=== PATIENT | female | born 2000 ===

== ENCOUNTER 2024-09-24 18:20 | Inpatient (IN) ==
--- NOTE | 2024-09-24 18:41 | Emergency Department Note ---
Impression & Plan Pyelonephritis, Sepsis, Hypomagnesemia ED Provider Note NAME: AUBREY PHILLIPS AGE: 24 SEX: F : 2000 ARRIVES VIA: Walk-In INFORMANT: Patient, ED PROVIDER(S): Kamaljit Shields DO CHIEF COMPLAINT: Fever HPI: The patient is a 24-year-old female who presented to the emergency department for an evaluation of fever. The patient states that she had similar episodes 2 weeks ago. She was diagnosed with urinary tract infection. She did take the antibiotic. Her symptoms resolved. She states that over the last 3 to 4 days she has had return of symptoms including lower abdominal pain back pain nausea vomiting and fever. The patient denies having any lower extremity swelling. She has had a slight cough but no difficulty breathing. She denies having any rashes. She has had no recent travel. ROS: See above HPI for pertinent positives & negatives. A total of 10 systems reviewed and were otherwise negative. PAST MEDICAL HISTORY: See Below PAST SURGICAL HISTORY: See Below FAMILY HISTORY: See Below SOCIAL HISTORY: See Below HOME MEDICATIONS: See Below ALLERGIES: See Below VITALS: See Below the patient is awake and alert. She is somewhat anxious appearing and tearful. EYES: The conjunctivae are clear. The pupils are round and reactive. EARS, NOSE, MOUTH AND THROAT: The nose is without any evidence of any deformity. Mucous membranes are moist. Tongue is midline. NECK: The neck is nontender and supple. RESPIRATORY: Normal respiratory effort is noted there is no evidence of wheezing rhonchi or rales CARDIOVASCULAR: Tachycardic and regular heart sounds were noted to auscultation. There is no definite murmur. GASTROINTESTINAL: The abdomen is soft and nondistended. There is lower abdominal tenderness to palpation but no specific guarding or rigidity. MUSCULOSKELETAL/EXTREMITIES: There is no evidence of gross deformity full range of motion is noted in the hips and shoulders. SKIN: There is no obvious evidence of any rash. There are no petechiae, pallor or cyanosis noted. NEUROLOGIC: Patient is awake alert and oriented x3 strength is symmetric patellar reflexes are 2+ bilaterally MEDICAL DECISION MAKING: The patient is a 24-year-old female who presented to the emergency department for an evaluation of fever and back pain. The patient has a history of a recently diagnosed urinary tract infection. The patient states that she finished her course of antibiotics and was feeling better until the last few days. She has been having worsening symptoms now including back pain she had an episode of vomiting previously. I discussed the patient's laboratory and radiographic studies with her. Given her findings she was started on empiric antibiotics as well as IV fluids. She was reevaluated multiple times. Her pulse rate improved but her blood pressure seemed to be very labile. Given her findings I discussed her condition with the on-call [facility]ist. They have agreed to evaluate the patient in the emergency department for further management and disposition. Triage Nursing notes reviewed. Prior medical records reviewed Vital Signs: reviewed and remarkable for hypotension and tachycardia. Differential diagnosis: Viral syndrome, otitis, pharyngitis, pneumonia, influenza, meningitis, urinary tract infection, sepsis, bacteremia, as well as other pathologies. ER treatment provided: See below Diagnostics interpreted by me: ECG: EKG was obtained in the emergency department. My interpretation is sinus tachycardia at 128 bpm. There is no ectopy. There is no acute ST segment abnormalities noted. Cardiac Monitoring: An order was placed for continuous cardiac monitoring. The monitor shows a rate of 107 bpm with sinus tachycardia. Laboratory studies: As stated above and show below. Imaging studies: See below. Radiographic imaging was reviewed by myself Consultation(s): I discussed this case with Dr. Maddox who is on-call for the [facility]. ED COURSE: Procedures: none Critical Care: I have personally spent greater than 35 minutes of critical care time in the direct management of this patient. This includes bedside care, interpretation of diagnostic studies, and testing, discussion with consultants, patient, and family members, and other required patient management activities. This 35 minutes is in excess of all separately billable procedures. Past Med/Surg History Problem List (Updated 09/24/24 @ 20:09 by Kamaljit Shields DO) Hypomagnesemia (Acute) Sepsis (Acute) Pyelonephritis (Acute) Acute UTI (Acute) Anemia (Acute) Rectal bleeding Hemorrhoids Rectal pain Social History Smoking Status: Never smoker Do You Dip or Chew Tobacco: No; Hx Substance Use: No Preferred Language: Angolan Feels Safe at Home: Yes Allergies Allergies Allergy/AdvReac Type Severity Reaction Status Date / Time No Known Allergies Allergy Verified 09/24/24 19:28 Home Meds Home Medications Medication Instructions Recorded Confirmed No Known Home Medications 09/24/24 09/24/24 Results & Data (ED) Vital Signs Vital Signs - 24 hr 09/24/24 18:30 09/24/24 18:39 09/24/24 18:43 Temperature 36.8 C Temperature Source Oral Pulse Rate 138 H 132 H Pulse Rate [Apical] 130 H Respiratory Rate 16 18 Respiratory Effort / Characteristics Non-Labored Spontaneous Respiratory Depth Normal Blood Pressure 102/39 L Blood Pressure [Right Arm] 93/62 L Blood Pressure Mean 60 Blood Pressure Mean [Right Arm] 72 Pulse Oximetry 97 99 Oxygen Delivery Method Room Air Room Air Sepsis Recent Fever Within 48 Hours No Sepsis New/Unexplained Change in Mental Status No Sepsis Action Taken by Nursing No Action Required 09/24/24 18:43 09/24/24 18:48 09/24/24 19:09 Temperature Temperature Source Pulse Rate 113 H Pulse Rate [Apical] 125 H Respiratory Rate 17 20 Respiratory Effort / Characteristics Respiratory Depth Blood Pressure 103/51 L Blood Pressure [Right Arm] 98/64 L Blood Pressure Mean 71 Blood Pressure Mean [Right Arm] 75 Pulse Oximetry 97 99 Oxygen Delivery Method Room Air Room Air Sepsis Recent Fever Within 48 Hours Sepsis New/Unexplained Change in Mental Status Sepsis Action Taken by Nursing 09/24/24 19:13 09/24/24 19:31 Temperature Temperature Source Pulse Rate 107 H Pulse Rate [Apical] 115 H Respiratory Rate 22 20 Respiratory Effort / Characteristics Non-Labored Spontaneous Respiratory Depth Normal Blood Pressure 87/51 L Blood Pressure [Right Arm] 103/51 L Blood Pressure Mean 59 Blood Pressure Mean [Right Arm] 68 Pulse Oximetry 99 100 Oxygen Delivery Method Room Air Sepsis Recent Fever Within 48 Hours Sepsis New/Unexplained Change in Mental Status Sepsis Action Taken by Snf Medications Current Medication List: was personally reviewed by me Laboratory Data Attestation: I reviewed the patient's lab results. 09/24/24 18:47 09/24/24 18:47 Lab Results 09/24/24 09/24/24 09/24/24 Range/Units 18:33 18:37 18:47 WBC 9.09 (4.8-10.8) K/ul RBC 5.36 (4.20-5.40) M/uL Hgb 11.4 L (12.0-16.0) g/dl Hct 35.7 L (37.0-47.0) % MCV 66.6 L (80.0-100.0) fL MCH 21.3 L (25.0-34.0) pg MCHC 31.9 L (32.0-36.0) g/dL RDW Std Deviation 38.1 (36.4-46.3) fL RDW Coeff of Christian 16.4 H (11.5-14.5) % Plt Count 274 (130-400) K/uL MPV 10.4 (9.4-12.4) fL Immature Gran % (Auto) 0.3 % Neut % (Auto) 89.4 % Lymph % (Auto) 8.3 % [place] % (Auto) 1.3 % Eos % (Auto) 0.1 % Baso % (Auto) 0.6 % Neut # (Auto) 8.13 H (1.40-6.50) K/uL Lymph # (Auto) 0.75 L (1.20-3.40) K/uL [place] # (Auto) 0.12 (0.11-0.59) K/uL Eos # (Auto) 0.01 (0.00-0.50) K/uL Baso # (Auto) 0.05 (0.00-0.20) K/uL Immature Gran # (Auto) 0.03 (0.01-0.20) K/uL Polychromasia 1+ Microcytosis Present Ovalocytes 1+ PT 11.2 (9.0-12.0) Seconds INR 1.0 (0.9-1.1) APTT 28 (21-31) Seconds PTT Ratio 1.0 VBG pH 7.37 (7.36-7.41) VBG pCO2 36 L (38-50) mmHg VBG pO2 34 mmHg VBG HCO3 21 mmol/L VBG O2 Saturation < 60.0 % VBG Base Excess -3.9 mEq/L Sodium 133 L (136-145) mmol/L Potassium 3.7 (3.5-5.1) mmol/L Chloride 103 (98-107) mmol/L Carbon Dioxide 21 (21-32) mmol/L Anion Gap 9 (3-11) BUN 7 (6-23) mg/dl Creatinine 0.82 (0.6-1.2) mg/dl Est Cr Clr Drug Dosing 98.9 ml/min eGFR 103.01 BUN/Creatinine Ratio 8.5 L (10-20) Glucose 113 H (70-99(Fasting)) mg/dl POC Glucose 90 (70-99) mg/dl Lactate 2.6 H* (0.4-2.0) mmol/L Calcium 8.9 (8.6-10.3) mg/dl Magnesium 1.5 L (1.7-2.4) mg/dl Total Bilirubin 0.9 (0.2-1.0) mg/dl Direct Bilirubin 0.2 (0-0.2) mg/dl AST 15 (13-39) U/L ALT 8 (7-52) U/L Alkaline Phosphatase 52 (34-104) U/L Troponin I High Sens < 2.3 (0-14) pg/ml Total Protein 7.8 (6.0-8.3) gm/dl Albumin 3.9 (3.4-5.0) gm/dl Procalcitonin 1.23 H (0-0.5) ng/ml HCG, Qual Negative (Negative) Urine Color Urine Appearance (Clear) Urine pH (4.5-7.5) Ur Specific [place] (1.000-1.030) Urine Protein (Negative) Urine Glucose (UA) (Negative) Urine Ketones (Negative) Urine Blood (Negative) Urine Nitrite (Negative) Urine Bilirubin (Negative) Urine Urobilinogen (Negative) Ur Leukocyte Esterase (Negative) Urine WBC (Auto) (0-5) /hpf Urine RBC (Auto) (0-2) /hpf U Hyaline Cast (Auto) (0-2) /lpf U Epithel Cells (Auto) (0-2) /hpf Urine Bacteria (Auto) (None Seen) Urine Comment 09/24/24 Range/Units 18:50 WBC (4.8-10.8) K/ul RBC (4.20-5.40) M/uL Hgb (12.0-16.0) g/dl Hct (37.0-47.0) % MCV (80.0-100.0) fL MCH (25.0-34.0) pg MCHC (32.0-36.0) g/dL RDW Std Deviation (36.4-46.3) fL RDW Coeff of Christian (11.5-14.5) % Plt Count (130-400) K/uL MPV (9.4-12.4) fL Immature Gran % (Auto) % Neut % (Auto) % Lymph % (Auto) % [place] % (Auto) % Eos % (Auto) % Baso % (Auto) % Neut # (Auto) (1.40-6.50) K/uL Lymph # (Auto) (1.20-3.40) K/uL [place] # (Auto) (0.11-0.59) K/uL Eos # (Auto) (0.00-0.50) K/uL Baso # (Auto) (0.00-0.20) K/uL Immature Gran # (Auto) (0.01-0.20) K/uL Polychromasia Microcytosis Ovalocytes PT (9.0-12.0) Seconds INR (0.9-1.1) APTT (21-31) Seconds PTT Ratio VBG pH (7.36-7.41) VBG pCO2 (38-50) mmHg VBG pO2 mmHg VBG HCO3 mmol/L VBG O2 Saturation % VBG Base Excess mEq/L Sodium (136-145) mmol/L Potassium (3.5-5.1) mmol/L Chloride (98-107) mmol/L Carbon Dioxide (21-32) mmol/L Anion Gap (3-11) BUN (6-23) mg/dl Creatinine (0.6-1.2) mg/dl Est Cr Clr Drug Dosing ml/min eGFR BUN/Creatinine Ratio (10-20) Glucose (70-99(Fasting)) mg/dl POC Glucose (70-99) mg/dl Lactate (0.4-2.0) mmol/L Calcium (8.6-10.3) mg/dl Magnesium (1.7-2.4) mg/dl Total Bilirubin (0.2-1.0) mg/dl Direct Bilirubin (0-0.2) mg/dl AST (13-39) U/L ALT (7-52) U/L Alkaline Phosphatase (34-104) U/L Troponin I High Sens (0-14) pg/ml Total Protein (6.0-8.3) gm/dl Albumin (3.4-5.0) gm/dl Procalcitonin (0-0.5) ng/ml HCG, Qual (Negative) Urine Color Yellow Urine Appearance Clear (Clear) Urine pH 8.0 H (4.5-7.5) Ur Specific [place] 1.006 (1.000-1.030) Urine Protein Negative (Negative) Urine Glucose (UA) Negative (Negative) Urine Ketones Negative (Negative) Urine Blood Negative (Negative) Urine Nitrite Negative (Negative) Urine Bilirubin Negative (Negative) Urine Urobilinogen Negative (Negative) Ur Leukocyte Esterase 2+ H (Negative) Urine WBC (Auto) 21-50 H (0-5) /hpf Urine RBC (Auto) 0-2 (0-2) /hpf U Hyaline Cast (Auto) 0-2 (0-2) /lpf U Epithel Cells (Auto) 0-2 (0-2) /hpf Urine Bacteria (Auto) 1+ H (None Seen) Urine Comment Administered Medications Sodium Chloride (Nss) 1,000 mls @ 999 mls/hr IV .Q1H1M MATT Stop: 09/24/24 20:45 Last Admin: 09/24/24 19:28 Dose: 999 mls/hr Documented By: Infusion: 09/24/24 19:28 Dose: Infused Documented By: Admin: 09/24/24 18:50 Dose: 999 mls/hr Documented By: JORGE Magnesium Sulfate/Dextrose (Magnesium Sulfate / D5w) 1 gm in 100 mls @ 100 mls/hr IV NOW STA Stop: 09/24/24 20:19 Last Admin: 09/24/24 19:27 Dose: 100 mls/hr Documented By: JORGE Discontinued Medications Ceftriaxone Sodium (Rocephin) 2,000 mg in 50 mls @ 100 mls/hr IV NOW STA Stop: 09/24/24 19:03 Last Infusion: 09/24/24 19:25 Dose: Infused Documented By: Admin: 09/24/24 18:53 Dose: 100 mls/hr Documented By: JORGE Ioversol (Optiray 320 125ml) 115 ml IV ONCE ONE Stop: 09/24/24 19:02 Last Admin: 09/24/24 19:01 Dose: 115 ml Documented By: ASHLEY Imaging Data Attestation: I personally reviewed and interpreted this imaging study as follows: My Impression: CT of the abdomen and pelvis was obtained in the emergency department. My interpretation is no free air, there is some dilated loops of bowel in the right upper quadrant, final report below. Radiologist's Impression: Abdomen/Pelvis CT 09/24/24 18:38 Clinical History: Fever and chills Technique: Axial computed tomography images were obtained of the abdomen and pelvis after the administration of intravenous contrast. No prior CT is available for comparison. Findings: The liver is overall of normal size, attenuation, and contour with no sign of cirrhosis or significant fatty infiltration. No liver mass lesion is seen. The portal vein is patent. The gallbladder appears unremarkable. No bile duct dilatation is noted. The spleen is of normal size. No focal splenic lesion is evident. The pancreas appears normal with no sign of acute or chronic pancreatitis and no mass lesion noted. The pancreatic duct is of normal caliber. The adrenal glands appear unremarkable. No definite renal or proximal ureteral calculi are seen on this contrast-enhanced study. There is no hydronephrosis or perinephric stranding. No renal mass lesion is identified. There is apparent mild multifocal diminished cortical enhancement of the left kidney. This may be due to pyelonephritis The aorta is of normal caliber. No abdominal adenopathy is seen. The stomach appears normal. There is no sign of small bowel obstruction. The colon appears unremarkable. The appendix appears normal also. No free intraperitoneal fluid or air is identified. No distal ureteral or bladder calculi are seen. The bladder is decompressed. The iliac arteries are of normal caliber. No pelvic adenopathy is noted. There is a suspected 1 cm Bartholin gland cyst. There is a 1.3 cm follicle in the left ovary The lungs bases appear clear. No fracture is identified. No focal osseous lesion is seen Impression: 1. Suspected left pyelonephritis 2. Small ovarian follicle and suspected Bartholin gland cyst Electronically signed by Ryan Woody 09-24-2024 7:19 PM Chest CTA 09/24/24 18:39 Clinical history: Fever and chills Technique: Axial computed tomography images were obtained of the chest after the administration of intravenous contrast according to the CT angiogram protocol Findings: There is no definite sign of pulmonary embolism. The lungs appear clear without infiltrate or mass. There is no pleural effusion or pneumothorax. There is no sign of pulmonary fibrosis or other diffuse interstitial process. No endobronchial lesion is seen There is no mediastinal, hilar, or axillary adenopathy. The thoracic aorta appears unremarkable with no sign of aneurysm or dissection. There is no pericardial effusion No fracture is seen. No focal osseous lesion is evident Impression: 1. No definite sign of pulmonary embolism 2. Normal-appearing lungs Electronically signed by Ryan Woody 09-24-2024 7:21 PM Discharge Plan Visit Data Chief Complaint: Fever Stated Complaint: FEVER ED Provider: Kamaljit Shields Discharge Problem: Pyelonephritis, Sepsis, Hypomagnesemia Patient Disposition: Being Evaluated by Hospitalist Condition: Fair Forms Stand Alone Forms: [facility] Prescriptions Prescriptions: No Action No Known Home Medications Referrals Referrals: PCP,NO [Physician] -
[2024-09-24] MEDS: SODIUM CHLORIDE 0.9% 1,000 ML IV SCH ×2 (18:50→22:26)
[2024-09-24] MEDS: cefTRIAXone SODIUM 2,000 MG/50 ML BAG IV STA (18:53)
[2024-09-24] MEDS: OPTIRAY 320 125ml IV ONE (19:01)
[2024-09-24 19:02] LABS: Base Excess VBG -3.9 mEq/L; HCO3 VBG 21 mmol/L; Oxygen Saturation VBG < 60.0 %; PCO2 VBG 36 mmHg (38-50); PO2 VBG 34 mmHg; pH VBG 7.37 (7.36-7.41)
[2024-09-24 19:02] LABS: Hematocrit (blood only) 35.7 % (37.0-47.0); Hemoglobin 11.4 g/dl (12.0-16.0); Immature Granulocytes # (auto) 0.03 K/uL (0.01-0.20); Immature Granulocytes % (auto) 0.3 %; Mean Corpuscular Hemoglobin 21.3 pg (25.0-34.0); Mean Corpuscular Volume 66.6 fL (80.0-100.0); RDW Standard Deviation 38.1 fL (36.4-46.3); Red Blood Count 5.36 M/uL (4.20-5.40); White Blood Count 9.09 K/ul (4.8-10.8)
[2024-09-24 19:08] LABS: Platelet Count 274 K/uL (130-400)
[2024-09-24 19:15] LABS: Appearance Urine Clear (Clear); Bacteria Urine Automated 1+ (None Seen); Cast Urine Automated 0-2 /lpf (0-2); Epithelial Cell Urine Auto 0-2 /hpf (0-2); Glucose Urine UA Negative (Negative); RBC Urine Automated 0-2 /hpf (0-2); WBC Urine Automated 21-50 /hpf (0-5)
[2024-09-24 19:19] LABS: Alanine Aminotransferase 8 U/L (7-52); Alkaline Phosphatase 52 U/L (34-104); Anion Gap 9 (3-11); Bilirubin,Total 0.9 mg/dl (0.2-1.0); Blood Urea Nitrogen 7 mg/dl (6-23); Calcium 8.9 mg/dl (8.6-10.3); Carbon Dioxide 21 mmol/L (21-32); Chloride 103 mmol/L (98-107); Creatinine Clr Calc Pharmacy 98.9 ml/min; Glucose 113 mg/dl (70-99(Fasting)); Magnesium 1.5 mg/dl (1.7-2.4); Potassium 3.7 mmol/L (3.5-5.1); Sodium 133 mmol/L (136-145); Total Protein 7.8 gm/dl (6.0-8.3)
[2024-09-24 19:22] LABS: Microcytosis Present; Ovalocytes 1+; Polychromasia 1+
--- NOTE | 2024-09-24 19:23 | CT Scan Report ---
Clinical History: Fever and chills Technique: Axial computed tomography images were obtained of the abdomen and pelvis after the administration of intravenous contrast. No prior CT is available for comparison. Findings: The liver is overall of normal size, attenuation, and contour with no sign of cirrhosis or significant fatty infiltration. No liver mass lesion is seen. The portal vein is patent. The gallbladder appears unremarkable. No bile duct dilatation is noted. The spleen is of normal size. No focal splenic lesion is evident. The pancreas appears normal with no sign of acute or chronic pancreatitis and no mass lesion noted. The pancreatic duct is of normal caliber. The adrenal glands appear unremarkable. No definite renal or proximal ureteral calculi are seen on this contrast-enhanced study. There is no hydronephrosis or perinephric stranding. No renal mass lesion is identified. There is apparent mild multifocal diminished cortical enhancement of the left kidney. This may be due to pyelonephritis The aorta is of normal caliber. No abdominal adenopathy is seen. The stomach appears normal. There is no sign of small bowel obstruction. The colon appears unremarkable. The appendix appears normal also. No free intraperitoneal fluid or air is identified. No distal ureteral or bladder calculi are seen. The bladder is decompressed. The iliac arteries are of normal caliber. No pelvic adenopathy is noted. There is a suspected 1 cm Bartholin gland cyst. There is a 1.3 cm follicle in the left ovary The lungs bases appear clear. No fracture is identified. No focal osseous lesion is seen Impression: 1. Suspected left pyelonephritis 2. Small ovarian follicle and suspected Bartholin gland cyst Electronically signed by Ryan Woody 09-24-2024 7:19 PM
--- NOTE | 2024-09-24 19:23 | CT Scan Report ---
Clinical history: Fever and chills Technique: Axial computed tomography images were obtained of the chest after the administration of intravenous contrast according to the CT angiogram protocol Findings: There is no definite sign of pulmonary embolism. The lungs appear clear without infiltrate or mass. There is no pleural effusion or pneumothorax. There is no sign of pulmonary fibrosis or other diffuse interstitial process. No endobronchial lesion is seen There is no mediastinal, hilar, or axillary adenopathy. The thoracic aorta appears unremarkable with no sign of aneurysm or dissection. There is no pericardial effusion No fracture is seen. No focal osseous lesion is evident Impression: 1. No definite sign of pulmonary embolism 2. Normal-appearing lungs Electronically signed by Ryan Woody 09-24-2024 7:21 PM
[2024-09-24] MEDS: MAGNESIUM SULFATE / D5W 1 GM/100 ML BAG IV STA (19:27)
[2024-09-24 19:30] LABS: INR 1.0 (0.9-1.1); Partial Thromboplastin Time 28 Seconds (21-31); Prothrombin Time 11.2 Seconds (9.0-12.0)
[2024-09-24 19:31] LABS: Pregnancy Test, Serum Negative (Negative)
[2024-09-24] MEDS: SODIUM CHLORIDE 0.9% 1,000 ML IV ONE (20:08)
--- NOTE | 2024-09-24 20:15 | History & Physical Report ---
Date of Service September 24, 2024 Assessment & Plan (1) Sepsis: (2) Pyelonephritis: (3) Hypomagnesemia: Plan 24yo female presenting with sepsis secondary to acute pyelonephritis. Patient febrile, tachycardic with hypotension in the ER, some improvement with IVF although still with HR of 117 and BP of 94/56 following 3L NSS. Patient with elevated procalcitonin of 1.23. Lactate of 2.6 on presentation which normalized to 1.7 following IVF. #Sepsis/Pyelonephritis - Sepsis present on admission. Likely secondary to bilateral pyelonephritis - patient with bilateral CVA tenderness, R>L on exam. CT suggestive of left pyelonephritis. She did complete 7 days of Cefdinir which is appropriate coverage for her culture. Uncertain why her infection is persistent? -Admit to PCU -Follow culture sent from ER - blood and urine -Continue IVF - LR at 125mL/hr x 2L -Calcium x 1gm for BP support -Ceftriaxone 2gm IV daily -Tylenol PRN -Toradol PRN -Zofran PRN nausea #Hypomagnesemia - Mg=1.5 -Repleted #Microcytic anemia - MCV quite low at 66.6. ?Thalassemia -Check iron panel History of Present Illness Chief Complaint: UTI Primary Care [facility] Neeraj Saleh is a 24yo female with no significant past medical history p resenting with fever, chills and bilateral flank pain. Patient was recently seen in the ER on 09/10/24 with complaint of nausea, vomiting and fever. She was found to have an acute UTI and was discharged home on Cefdinir 300mg po BID x 7 day course. Urine culture POSITIVE for aquino-sensitive E. coli. Patient reports that her symptoms improved and she completed her antibiotic course as directed. Over the last 2-3 days she has been again experiencing increased frequency of urination as well as lower abdominal pain and pain in the bilateral flanks. Today she had some nausea and an episode of vomiting. She took a nap from around 15:00 - 16:30; when she woke she had an elevated temperature to 100 which then increased to 102. No additional complaints at this time. In the ER patient had elevated heart rate - sinus tachycardia in the 110-120's. Blood pressure has been borderline low, 87/51 at the time of my encounter ER Course: NSS x 3L Ceftriaxone 2gm Magnesium x 1gm Allergies Allergy/AdvReac Type Severity Reaction Status Date / Time No Known Allergies Allergy Verified 09/24/24 19:28 Home Medications Medication Instructions Recorded Confirmed Type No Known Home Medications 09/24/24 09/24/24 History Past Med/Surg History Problem List Hypomagnesemia (Acute) Sepsis (Acute) Pyelonephritis (Acute) Acute UTI (Acute) Anemia (Acute) Rectal bleeding Hemorrhoids Rectal pain Surgical History (Updated 09/24/24 @ 23:14 by Kellie Maddox DO) History of rectal surgery 07/26/2024 dilation performed in [facility] Family History (Updated 09/24/24 @ 23:14 by Kellie Maddox DO) Other Thyroid disease Social History Smoking Status: Never smoker Do You Dip or Chew Tobacco: No; Hx Alcohol Use: Yes Alcohol type: beer, wine and hard liquor Hx Substance Use: No Preferred Language: Occitan Communication Ability: Effective [employer] Required: No Beliefs That Will Affect Care: None Current Living Situation: Other Current Living Situation Comment: room mates Other Information That Helps Us Care for You: No Feels Safe at Home: Yes Safety Concerns: Feels Safe At This Time Assistive Devices: Glasses Review of Systems Review of Systems: All systems reviewed & are unremarkable except as noted in HPI & below Physical Exam Physical Exam: General: patient resting comfortably, NAD, non-toxic in appearance, AA&O x 4 Skin: warm, dry, intact, no rashes or lesions HEENT: NC/AT, PERRL, EOMI, anicteric sclera, conjunctiva without injection, external ear normal to inspection and nontender, nares patent, moist mucus membranes, dentition intact, no oropharyngeal lesions, neck supple, trachea midline, no LAD, no thyromegaly, no JVD Heart: +S1/S2, regular, no m/r/g Lungs: equal air entry bilaterally, no rales/rhonchi/wheezes Abd: +BS, soft, suprapubic tenderness, +CVA tenderness bilaterally Ext: warm, 2+ pulses in UE/LE bilaterally, no clubbing/cyanosis or edema Neuro: nonfocal, patient AA&O x 4, speech intact, no facial droop, moving all extremities on command with equal strength 5/5 Results & Data Results & Data Vital Signs (Past 12 Hours) Vital Signs Temp Pulse Pulse Resp BP BP Pulse Ox 09/24/24 20:10 108 H 25 H 90/49 L 99 09/24/24 19:31 107 H 20 87/51 L 100 09/24/24 19:13 115 H 22 103/51 L 99 09/24/24 19:09 113 H 20 103/51 L 99 09/24/24 18:48 125 H 17 98/64 L 97 09/24/24 18:43 09/24/24 18:43 130 H 18 93/62 L 99 09/24/24 18:39 132 H 09/24/24 18:30 36.8 C 138 H 16 102/39 L 97 O2 Del Method 09/24/24 20:10 09/24/24 19:31 09/24/24 19:13 Room Air 09/24/24 19:09 09/24/24 18:48 Room Air 09/24/24 18:43 Room Air 09/24/24 18:43 Room Air 09/24/24 18:39 09/24/24 18:30 Room Air Laboratory Results Laboratory Results WBC 9.09 K/ul (4.8-10.8) 09/24/24 18:47 RBC 5.36 M/uL (4.20-5.40) 09/24/24 18:47 Hgb 11.4 g/dl (12.0-16.0) L 09/24/24 18:47 Hct 35.7 % (37.0-47.0) L 09/24/24 18:47 MCV 66.6 fL (80.0-100.0) L 09/24/24 18:47 MCH 21.3 pg (25.0-34.0) L 09/24/24 18:47 MCHC 31.9 g/dL (32.0-36.0) L 09/24/24 18:47 RDW Std Deviation 38.1 fL (36.4-46.3) 09/24/24 18:47 RDW Coeff of Christian 16.4 % (11.5-14.5) H 09/24/24 18:47 Plt Count 274 K/uL (130-400) 09/24/24 18:47 MPV 10.4 fL (9.4-12.4) 09/24/24 18:47 Immature Gran % (Auto) 0.3 % 09/24/24 18:47 Neut % (Auto) 89.4 % 09/24/24 18:47 Lymph % (Auto) 8.3 % 09/24/24 18:47 [place] % (Auto) 1.3 % 09/24/24 18:47 Eos % (Auto) 0.1 % 09/24/24 18:47 Baso % (Auto) 0.6 % 09/24/24 18:47 Neut # (Auto) 8.13 K/uL (1.40-6.50) H 09/24/24 18:47 Lymph # (Auto) 0.75 K/uL (1.20-3.40) L 09/24/24 18:47 [place] # (Auto) 0.12 K/uL (0.11-0.59) 09/24/24 18:47 Eos # (Auto) 0.01 K/uL (0.00-0.50) 09/24/24 18:47 Baso # (Auto) 0.05 K/uL (0.00-0.20) 09/24/24 18:47 Immature Gran # (Auto) 0.03 K/uL (0.01-0.20) 09/24/24 18:47 Polychromasia 1+ 09/24/24 18:47 Microcytosis Present 09/24/24 18:47 Ovalocytes 1+ 09/24/24 18:47 PT 11.2 Seconds (9.0-12.0) 09/24/24 18:47 INR 1.0 (0.9-1.1) 09/24/24 18:47 APTT 28 Seconds (21-31) 09/24/24 18:47 PTT Ratio 1.0 09/24/24 18:47 VBG pH 7.37 (7.36-7.41) 09/24/24 18:33 VBG pCO2 36 mmHg (38-50) L 09/24/24 18:33 VBG pO2 34 mmHg 09/24/24 18:33 VBG HCO3 21 mmol/L 09/24/24 18:33 VBG O2 Saturation < 60.0 % 09/24/24 18:33 VBG Base Excess -3.9 mEq/L 09/24/24 18:33 Sodium 133 mmol/L (136-145) L 09/24/24 18:47 Potassium 3.7 mmol/L (3.5-5.1) 09/24/24 18:47 Chloride 103 mmol/L (98-107) 09/24/24 18:47 Carbon Dioxide 21 mmol/L (21-32) 09/24/24 18:47 Anion Gap 9 (3-11) 09/24/24 18:47 BUN 7 mg/dl (6-23) 09/24/24 18:47 Creatinine 0.82 mg/dl (0.6-1.2) 09/24/24 18:47 Est Cr Clr Drug Dosing 98.9 ml/min 09/24/24 18:47 eGFR 103.01 09/24/24 18:47 BUN/Creatinine Ratio 8.5 (10-20) L 09/24/24 18:47 Glucose 113 mg/dl (70-99(Fasting)) H 09/24/24 18:47 POC Glucose 90 mg/dl (70-99) 09/24/24 18:37 Lactate 1.7 mmol/L (0.4-2.0) 09/24/24 Unknown Calcium 8.9 mg/dl (8.6-10.3) 09/24/24 18:47 Magnesium 1.5 mg/dl (1.7-2.4) L 09/24/24 18:47 Total Bilirubin 0.9 mg/dl (0.2-1.0) 09/24/24 18:47 Direct Bilirubin 0.2 mg/dl (0-0.2) 09/24/24 18:47 AST 15 U/L (13-39) 09/24/24 18:47 ALT 8 U/L (7-52) 09/24/24 18:47 Alkaline Phosphatase 52 U/L (34-104) 09/24/24 18:47 Troponin I High Sens < 2.3 pg/ml (0-14) 09/24/24 18:47 Total Protein 7.8 gm/dl (6.0-8.3) 09/24/24 18:47 Albumin 3.9 gm/dl (3.4-5.0) 09/24/24 18:47 Procalcitonin 1.23 ng/ml (0-0.5) H 09/24/24 18:47 HCG, Qual Negative (Negative) 09/24/24 18:47 Urine Color Yellow 09/24/24 18:50 Urine Appearance Clear (Clear) 09/24/24 18:50 Urine pH 8.0 (4.5-7.5) H 09/24/24 18:50 Ur Specific [place] 1.006 (1.000-1.030) 09/24/24 18:50 Urine Protein Negative (Negative) 09/24/24 18:50 Urine Glucose (UA) Negative (Negative) 09/24/24 18:50 Urine Ketones Negative (Negative) 09/24/24 18:50 Urine Blood Negative (Negative) 09/24/24 18:50 Urine Nitrite Negative (Negative) 09/24/24 18:50 Urine Bilirubin Negative (Negative) 09/24/24 18:50 Urine Urobilinogen Negative (Negative) 09/24/24 18:50 Ur Leukocyte Esterase 2+ (Negative) H 09/24/24 18:50 Urine WBC (Auto) 21-50 /hpf (0-5) H 09/24/24 18:50 Urine RBC (Auto) 0-2 /hpf (0-2) 09/24/24 18:50 U Hyaline Cast (Auto) 0-2 /lpf (0-2) 09/24/24 18:50 U Epithel Cells (Auto) 0-2 /hpf (0-2) 09/24/24 18:50 Urine Bacteria (Auto) 1+ (None Seen) H 09/24/24 18:50 Urine Comment 09/24/24 18:50 Impressions Abdomen/Pelvis CT 09/24/24 18:38 Clinical History: Fever and chills Technique: Axial computed tomography images were obtained of the abdomen and pelvis after the administration of intravenous contrast. No prior CT is available for comparison. Findings: The liver is overall of normal size, attenuation, and contour with no sign of cirrhosis or significant fatty infiltration. No liver mass lesion is seen. The portal vein is patent. The gallbladder appears unremarkable. No bile duct dilatation is noted. The spleen is of normal size. No focal splenic lesion is evident. The pancreas appears normal with no sign of acute or chronic pancreatitis and no mass lesion noted. The pancreatic duct is of normal caliber. The adrenal glands appear unremarkable. No definite renal or proximal ureteral calculi are seen on this contrast-enhanced study. There is no hydronephrosis or perinephric stranding. No renal mass lesion is identified. There is apparent mild multifocal diminished cortical enhancement of the left kidney. This may be due to pyelonephritis The aorta is of normal caliber. No abdominal adenopathy is seen. The stomach appears normal. There is no sign of small bowel obstruction. The colon appears unremarkable. The appendix appears normal also. No free intraperitoneal fluid or air is identified. No distal ureteral or bladder calculi are seen. The bladder is decompressed. The iliac arteries are of normal caliber. No pelvic adenopathy is noted. There is a suspected 1 cm Bartholin gland cyst. There is a 1.3 cm follicle in the left ovary The lungs bases appear clear. No fracture is identified. No focal osseous lesion is seen Impression: 1. Suspected left pyelonephritis 2. Small ovarian follicle and suspected Bartholin gland cyst Electronically signed by Ryan Woody 09-24-2024 7:19 PM Chest CTA 09/24/24 18:39 Clinical history: Fever and chills Technique: Axial computed tomography images were obtained of the chest after the administration of intravenous contrast according to the CT angiogram protocol Findings: There is no definite sign of pulmonary embolism. The lungs appear clear without infiltrate or mass. There is no pleural effusion or pneumothorax. There is no sign of pulmonary fibrosis or other diffuse interstitial process. No endobronchial lesion is seen There is no mediastinal, hilar, or axillary adenopathy. The thoracic aorta appears unremarkable with no sign of aneurysm or dissection. There is no pericardial effusion No fracture is seen. No focal osseous lesion is evident Impression: 1. No definite sign of pulmonary embolism 2. Normal-appearing lungs Electronically signed by Ryan Woody 09-24-2024 7:21 PM Code Status & VTE Plan VTE Prophylaxis Plan VTE Prophylaxis will be ordered: Yes PG Care Time/CCT Total # of Minutes Spent Total Time Spent with Patient: Total time spent is greater than 50% in coordination of care (as documented) at patient's floor/unit and/or counseling patient: Coding Level of Care Code 61283 INT INP/OBS CARE 3/75MIN Diagnoses Sepsis A41.9 Pyelonephritis N12 Hypomagnesemia E83.42
[2024-09-24] MEDS ORDERED: POLYETHYLENE (MIRALAX) 17 GM PACK PO PRN (22:02)
[2024-09-24] MEDS ORDERED: DOCUSATE SODIUM 100 MG CAP PO PRN (22:02)
[2024-09-24] MEDS ORDERED: ONDANSETRON INJ 2 MG/ML 2 ML VIAL IV PRN (22:02)
[2024-09-24] MEDS: ENOXAPARIN INJ 40 MG/0.4 ML SYR SQ SCH (22:25)
[2024-09-24] MEDS: CALCIUM GLUCONATE 1,000 MG/60 ML BAG IV STA (22:27)
[2024-09-24] MEDS: KETOROLAC TROMETHAMINE 15 MG/ML VIAL IV PRN (22:42)
[2024-09-25 06:59] LABS: Hematocrit (blood only) 30.6 % (37.0-47.0); Hemoglobin 9.6 g/dl (12.0-16.0); Mean Corpuscular Hemoglobin 21.1 pg (25.0-34.0); Mean Corpuscular Volume 67.3 fL (80.0-100.0); Platelet Count 250 K/uL (130-400); RDW Standard Deviation 39.8 fL (36.4-46.3); Red Blood Count 4.55 M/uL (4.20-5.40); White Blood Count 15.84 K/ul (4.8-10.8)
[2024-09-25 07:07] LABS: Anion Gap 5.0 (3-11); Blood Urea Nitrogen 6.0 mg/dl (6-23); Calcium 7.6 mg/dl (8.6-10.3); Carbon Dioxide 20.0 mmol/L (21-32); Chloride 115.0 mmol/L (98-107); Creatinine Clr Calc Pharmacy 121.8 ml/min; Glucose 115.0 mg/dl (70-99(Fasting)); Iron 11.0 mcg/dl (35-150); Potassium 3.6 mmol/L (3.5-5.1); Sodium 140.0 mmol/L (136-145); Total Iron Binding Cap Calc 260.0 mcg/dl (250-450); Transferrin 186.0 mg/dl (200-360); Transferrin (FE) Percent Satur 4.0 % (15-50)
--- NOTE | 2024-09-25 11:40 | Electrocardiogram Report ---
Test Reason : Blood Pressure : */* mmHG Vent. Rate : 128 BPM Atrial Rate : 128 BPM P-R Int : 130 ms QRS Dur : 76 ms QT Int : 406 ms P-R-T Axes : 31 59 51 degrees QTcB Int : 592 ms Sinus tachycardia Nonspecific ST and T wave abnormality Abnormal ECG No previous ECGs available Confirmed by Jose Elias Sarabia ([id number]) on 09/25/2024 11:39:49 AM Referred By: REFERRED SELF Confirmed By: Jose Elias Sarabia
--- NOTE | 2024-09-25 11:41 | Hospitalist Progress Note ---
Date of Service September 25, 2024 Assessment & Plan (1) Sepsis: (2) Pyelonephritis: (3) Hypomagnesemia: Plan 24yo female presenting with sepsis secondary to acute pyelonephritis. Patient febrile, tachycardic with hypotension in the ER, some improvement with IVF although still with HR of 117 and BP of 94/56 following 3L NSS. Patient with elevated procalcitonin of 1.23. Lactate of 2.6 on presentation which normalized to 1.7 following IVF. #Sepsis/Pyelonephritis Sepsis present on admission. Likely secondary to bilateral pyelonephritis. She did complete 7 days of Cefdinir which is appropriate coverage for her culture. Uncertain why her infection is persistent? CT suggestive of left pyelonephritis. CBC w/ bump of WBC to 15.84, BMP stable UC w/ E. Coli as prelim - await sensitivities Continue IV Rocephin Tylenol prn for pain/fever, Zofran prn for nausea. #Hypomagnesemia Mg=1.5 on admission Repleted #Microcytic anemia hgb 9.6, MCV 67.3 Iron panel w/ low iron of 11, transferrin % sat of 4 Would benefit from IV iron infusion + PO supplementation & heme referral on outpatient Set IV iron infusion for 09/26 in AM. DVT prophylaxis: Lovenox Code: full Admission and Anticipated Discharge Date Admission Date: September 24, 2024 Subjective The patient was seen and examined this morning. She reports she was feeling better this AM. Denied any further flank pain. She was still experiencing dysuria. Physical Exam Constitutional: no acute distress Respiratory: normal respiratory effort, lungs clear to auscultation Cardiovascular: tachycardic, no LE edema Neurologic: PERRL, EOMI, accommodation nl, no face palsy, no dysarthria Psychiatric: A+Ox3, euthymic affect Results & Data Results & Data Vital Signs (Past 12 Hours) Vital Signs Temp Pulse Pulse Resp BP Pulse Ox O2 Del Method 09/25/24 11:39 36.4 C L 94 H 18 96/65 L 98 Room Air 09/25/24 08:28 99 H 09/25/24 07:54 36.3 C L 71 18 97/62 L 99 Room Air 09/25/24 02:45 36.9 C 91 H 18 93/56 L 98 Room Air PG Care Time/CCT Total # of Minutes Spent Total Time Spent with Patient: Total time spent is greater than 50% in coordination of care (as documented) at patient's floor/unit and/or counseling patient: Coding Level of Care Code 95331 SUB INP/OBS CARE 235MIN Diagnoses Sepsis A41.9 Pyelonephritis N12 Hypomagnesemia E83.42
[2024-09-25] MEDS: cefTRIAXone SODIUM 1,000 MG/50 ML BAG IV SCH (17:06)
[2024-09-25] MEDS: ACETAMINOPHEN 325 MG TAB PO PRN (18:01)
[2024-09-26 06:10] LABS: Hematocrit (blood only) 29.3 % (37.0-47.0); Hemoglobin 9.2 g/dl (12.0-16.0); Immature Granulocytes # (auto) 0.04 K/uL (0.01-0.20); Immature Granulocytes % (auto) 0.4 %; Mean Corpuscular Hemoglobin 20.7 pg (25.0-34.0); Mean Corpuscular Volume 66.0 fL (80.0-100.0); RDW Standard Deviation 39.3 fL (36.4-46.3); Red Blood Count 4.44 M/uL (4.20-5.40); White Blood Count 10.55 K/ul (4.8-10.8)
[2024-09-26 06:28] LABS: Anion Gap 5.0 (3-11); Blood Urea Nitrogen 7.0 mg/dl (6-23); Calcium 7.8 mg/dl (8.6-10.3); Carbon Dioxide 20.0 mmol/L (21-32); Chloride 114.0 mmol/L (98-107); Creatinine Clr Calc Pharmacy 143.8 ml/min; Glucose 91.0 mg/dl (70-99(Fasting)); Magnesium 1.7 mg/dl (1.7-2.4); Potassium 3.5 mmol/L (3.5-5.1); Sodium 139.0 mmol/L (136-145)
[2024-09-26 06:47] LABS: Microcytosis Present; Ovalocytes 1+; Platelet Count 201 K/uL (130-400); Polychromasia 1+
[2024-09-26 07:35] VITALS: RESP 19; TEMP 98.4; O2SAT 98
--- NOTE | 2024-09-26 08:42 | Discharge Summary ---
Discharge Summary Date of Service September 26, 2024 Principal Dx & Hospital Course #1 = Principal Diagnosis (1) Sepsis: (2) Pyelonephritis: (3) Hypomagnesemia: Plan 24yo female presenting with sepsis secondary to acute pyelonephritis. Patient febrile, tachycardic with hypotension in the ER, some improvement with IVF although still with HR of 117 and BP of 94/56 following 3L NSS. Patient with elevated procalcitonin of 1.23. Lactate of 2.6 on presentation which normalized to 1.7 following IVF. #Sepsis/Pyelonephritis Sepsis present on admission. Likely secondary to bilateral pyelonephritis. She did complete 7 days of Cefdinir which is appropriate coverage for her culture. Uncertain why her infection is persistent? CT suggestive of left pyelonephritis. CBC w/ resolution of WBC, BMP stable UC w/ E. Coli pansensitive --> given recent course of Cefdinir plan to treat w/ Cefpodoxime twice daily for additional 8 days on discharge to complete 10 day course for pyelonephritis. s/p IV Rocephin x2 #Hypomagnesemia Mg=1.5 on admission now stable at 1.7 Repleted #Microcytic anemia hgb 9.2, MCV 66.0 Iron panel w/ low iron of 11, transferrin % sat of 4 s/p 1 x dose of Venofer prior to dc Heme referral sent on discharge. Consider PO iron supplement outpatient if can tolerate. Discharged home 09/26. Admission HPI Per Admitting Provider Bonnie Saleh is a 24yo female with no significant past medical history presenting with fever, chills and bilateral flank pain. Patient was recently seen in the ER on 09/10/24 with complaint of nausea, vomiting and fever. She was found to have an acute UTI and was discharged home on Cefdinir 300mg po BID x 7 day course. Urine culture POSITIVE for aquino-sensitive E. coli. Patient reports that her symptoms improved and she completed her antibiotic course as directed. Over the last 2-3 days she has been again experiencing increased frequency of urination as well as lower abdominal pain and pain in the bilateral flanks. Today she had some nausea and an episode of vomiting. She took a nap from around 15:00 - 16:30; when she woke she had an elevated temperature to 100 which then increased to 102. No additional complaints at this time. In the ER patient had elevated heart rate - sinus tachycardia in the 110-120's. Blood pressure has been borderline low, 87/51 at the time of my encounter ER Course: NSS x 3L Ceftriaxone 2gm Magnesium x 1gm Discharge Exam Constitutional WD/WN, vitals as above Respiratory normal respiratory effort Skin no rashes, warm and dry Neurologic PERRL, EOMI, accommodation nl, no face palsy, no dysarthria Psychiatric A+Ox3, euthymic affect Discharge Plan Discharge Items Patient Disposition: Home - Self-Care Reason For Visit: SEPSIS, PYELONEPHRITIS Discharge Diagnosis: Pyelonephritis Condition on Discharge: Fair Activity: Resume your previous activity Non-emergency contact: Primary Care Provider Call non-emergency contact if: you have any medication questions, your symptoms worsen and you have a fever Follow-up/Referrals: [facility] [Primary Care Provider] - Diet: Regular Addtl Attending Provider Instructions: Ms. Saleh, You were recently hospitalized for an ongoing UTI that was previously treated a few weeks ago. It appeared that your infection spread to your kidneys, something called pyelonephritis. Please see recommendations below regarding your discharge. Please take Cefpodoxime twice daily for the next 8 days. Please take your first dose when you pick it up from the pharmacy and the second dose will be this evening. Please use Pyridium as needed for bladder burning over the next 3 days. If you are still experiencing burning with urination at that point, please contact the health services on campus for further recommendations. Please use Tylenol for pain or fever. You were also found to have iron deficiency and were given 1 dose of IV iron. You have been referred to our hematology department for further care regarding this. Please follow up with health services within 1-2 weeks of discharge. Best of luck! Venice Barber PA-C Pending Studies at Discharge: No Stand-Alone Forms: My [place], Smoking Cessation Medications and DC Order Prescriptions: New cefpodoxime 200 mg tablet 200 mg PO BID Qty: 16 0RF Rx Instructions: must administer with a meal/food phenazopyridine [Pyridium] 200 mg tablet 200 mg PO Q8H PRN (Reason: pain) Qty: 6 0RF Discharge Orders: Discharge Order (Routine); Ordered 09/26/24 Ordered By: Venice Barber Admission Data Admit Date/Time: 09/24/24 20:14 Attending Provider: Jaoo Milan Admit Provider: Kellie Maddox Primary Care Provider: [facility] Other Providers: Kelile Maddox Other Interventions: Discharge Summary Assessment (RN) Last Done: 09/26/24 10:06 Hospital Stay Data Consultations 09/24/24 19:48 ED Decision to Admit Stat Diagnostic Imagining Performed 09/24/24 18:38 CT abd pelvis IV con only Stat 09/24/24 18:39 CT angio chest PE protocol Stat Pending Results Patient Have Any Pending Studies at Discharge: No Discharge Instructions Given to Patient (Per Discharging Provider) Ms. Saleh, You were recently hospitalized for an ongoing UTI that was previously treated a few weeks ago. It appeared that your infection spread to your kidneys, something called pyelonephritis. Please see recommendations below regarding your discharge. Please take Cefpodoxime twice daily for the next 8 days. Please take your first dose when you pick it up from the pharmacy and the second dose will be this evening. Please use Pyridium as needed for bladder burning over the next 3 days. If you are still experiencing burning with urination at that point, please contact the health services on campus for further recommendations. Please use Tylenol for pain or fever. You were also found to have iron deficiency and were given 1 dose of IV iron. You have been referred to our hematology department for further care regarding this. Please follow up with health services within 1-2 weeks of discharge. Best of luck! Venice Barber PA-C Total Time Total Time Spent Total Time Spent (In Minutes): 50 Total Time Includes: Examination of the Patient, Discharge Planning and Medication Reconciliation Coding Level of Care Code 46003 INP/OBS DISCH >30 MIN Diagnoses Sepsis A41.9 Pyelonephritis N12 Hypomagnesemia E83.42
[2024-09-26] MEDS: IRON SUCROSE 300 MG in SODIUM CHLORIDE 0.9% 250 ML IV ONE (09:52)
[2024-09-26 11:16] VITALS: BP 104/66; PULSE 97
== END 2024-09-26 12:24 | disposition home or self-care (01) | DRG 872 ==
LOC: ED 18:20 → 4W 20:14 → SUATTDRO 20:14 → 4W 21:45